=== PATIENT | male | born 1945 | race Caucasian/White ===

== ENCOUNTER 2017-03-11 15:20 | Emergency (ER) | payer OTHER, MEDICAID ==
[~2017-03-11] VITALS: Ht 185.4 cm; Wt 77.1 kg
[~2017-03-11 15:20] MED LIST: MOME13HF IH; MONT10TA22 PO; PROAIR; SYMBICORT; TIOT18CA3 IH
[2017-03-11 15:32] VITALS: BP_SYST 119
[2017-03-11 16:50] VITALS: BP_SYST 123
== END 2017-03-11 16:50 | disposition home or self-care (01) ==
LOC: SED 15:20
DX: S92.352A Displaced fracture of fifth metatarsal bone, left foot, initial encounter for closed fracture (principal); J44.9 Chronic obstructive pulmonary disease, unspecified; W01.0XXA Fall on same level from slipping, tripping and stumbling without subsequent striking against object, initial encounter; Y93.89 Activity, other specified; Y92.89 Other specified places as the place of occurrence of the external cause; Y99.8 Other external cause status
CPT/HCPCS: 99284

== ENCOUNTER 2018-07-03 15:16 | Inpatient (IN) | payer OTHER, MEDICAID ==
[~2018-07-03] VITALS: Ht 182.9 cm; Wt 72.6 kg
[2018-07-03 15:16] VITALS: BP_SYST 125
[2018-07-03] MEDS ORDERED: ASPIRIN 81 MG TAB.CHEW PO ONE (15:30)
[2018-07-03] MEDS ORDERED: BUPR300T55 PO (15:49)
[2018-07-03] MEDS ORDERED: FLUT16SP16 NS (15:49)
[2018-07-03] MEDS ORDERED: DICY10CA13 PO (15:49)
[2018-07-03] MEDS ORDERED: SPIRIVA INH (15:49)
[2018-07-03] MEDS ORDERED: FLUT1BLS3 INH (15:49)
[2018-07-03] MEDS ORDERED: ALBMDI INH (15:49)
[2018-07-03] MEDS ORDERED: ALPR0.5T PO (15:49)
[2018-07-03 16:12] LABS: ANION GAP 9 (5-15); CHLORIDE 104 mmol/L (98-107); CREATININE 0.75 mg/dL (0.55-1.30); GLUCOSE 118 mg/dL (70-99); POTASSIUM 3.9 mmol/L (3.5-5.1); SODIUM SERUM 141 mmol/L (136-145); UREA NITROGEN, BLOOD 15 mg/dL (8-21)
[2018-07-03 16:19] LABS: ALANINE AMINOTRANSFERASE 18 U/L (12-78); ALBUMIN 3.9 g/dL (3.4-4.8); ASPARTATE AMINOTRANSFERASE 16 U/L (10-37); INR 1.1 (0.80-1.20); PROTHROMBIN TIME 10.9 SECS (9.5-12.5); TOTAL BILIRUBIN 0.3 mg/dL (0.0-1.0)
[2018-07-03 16:20] LABS: BASOPHILS % (AUTO) 0.8 % (0.0-2.0); EOSINOPHILS # (AUTO) 0.2 K/uL (0.0-0.4); EOSINOPHILS % (AUTO) 3.1 % (0.0-4.0); HEMATOCRIT 43.3 % (36-54); HEMOGLOBIN 14.6 g/dL (14.0-18.0); LYMPHOCYTES # (AUTO) 1.1 K/uL (1.0-5.5); LYMPHOCYTES % (AUTO) 18.9 % (20.5-51.5); MEAN CORPUSCULAR HEMOGLOBIN 31 pg (27-31); MEAN CORPUSCULAR HGB CONC 34 % (32-36); MEAN CORPUSCULAR VOLUME 91 fL (79.0-98.0); MONOCYTES # (AUTO) 0.5 K/uL (0.0-1.0); MONOCYTES % (AUTO) 7.9 % (1.7-9.3); NEUTROPHILS % (AUTO) 69.3 % (40.0-70.0); PLATELET COUNT (AUTO) 236 K/uL (130-430); RED BLOOD CELL COUNT(AUTO) 4.76 MIL/uL (4.2-6.2); RED CELL DISTRIBUTION WIDTH 12.9 % (9.0-15.0); WHITE BLOOD COUNT (AUTO) 5.8 K/uL (4.8-10.8)
[2018-07-03] MEDS ORDERED: IPRATROPIUM/ALBUTEROL SULFATE 3 ML AMPUL.NEB INH PRN (17:15)
[2018-07-03] MEDS ORDERED: MORPHINE 4 MG/ML INJ. SYRINGE IVP PRN (17:15)
[2018-07-03] MEDS ORDERED: traMADol HCL HCL 50 MG TABLET (ULTRAM) PO PRN (17:15)
[2018-07-03] MEDS ORDERED: ONDANSETRON HCL 4 MG/2 ML VIAL IVP PRN (17:15)
[2018-07-03] MEDS ORDERED: ACETAMINOPHEN 325 MG TABLET PO PRN (17:15)
[2018-07-03 17:23] VITALS: BP_SYST 137
[2018-07-03] MEDS: IPRATROPIUM/ALBUTEROL SULFATE 3 ML AMPUL.NEB INH SCH ×2 (17:30→23:00)
[2018-07-03 17:37] VITALS: BP_SYST 116
[2018-07-03] MEDS: ALPRAZolam 0.25 MG TABLET PO SCH (18:00)
[2018-07-03 20:00] VITALS: BP_SYST 118
[2018-07-03] MEDS ORDERED: ZOLPIDEM TARTRATE 5 MG TABLET PO PRN (21:00)
[2018-07-03] MEDS ORDERED: CARI350T27 PO (22:22)
[2018-07-04 00:49] VITALS: BP_SYST 113
[2018-07-04 06:22] LABS: BASOPHILS % (AUTO) 0.9 % (0.0-2.0); EOSINOPHILS # (AUTO) 0.2 K/uL (0.0-0.4); EOSINOPHILS % (AUTO) 3.6 % (0.0-4.0); HEMATOCRIT 42.2 % (36-54); HEMOGLOBIN 14.1 g/dL (14.0-18.0); LYMPHOCYTES # (AUTO) 1.1 K/uL (1.0-5.5); LYMPHOCYTES % (AUTO) 20.2 % (20.5-51.5); MEAN CORPUSCULAR HEMOGLOBIN 31 pg (27-31); MEAN CORPUSCULAR HGB CONC 34 % (32-36); MEAN CORPUSCULAR VOLUME 92 fL (79.0-98.0); MONOCYTES # (AUTO) 0.5 K/uL (0.0-1.0); MONOCYTES % (AUTO) 9.7 % (1.7-9.3); NEUTROPHILS # (AUTO) 3.5 K/uL (1.8-7.7); NEUTROPHILS % (AUTO) 65.6 % (40.0-70.0); PLATELET COUNT (AUTO) 216 K/uL (130-430); RED CELL DISTRIBUTION WIDTH 12.3 % (9.0-15.0); WHITE BLOOD COUNT (AUTO) 5.3 K/uL (4.8-10.8)
[2018-07-04 06:56] LABS: ANION GAP 7 (5-15); CALCIUM 8.9 mg/dL (8.4-11.0); CHLORIDE 105 mmol/L (98-107); GLUCOSE 106 mg/dL (70-99); SODIUM SERUM 141 mmol/L (136-145); UREA NITROGEN, BLOOD 13 mg/dL (8-21)
[2018-07-04 07:19] LABS: ALANINE AMINOTRANSFERASE 18 U/L (12-78); ALBUMIN 3.5 g/dL (3.4-4.8); ASPARTATE AMINOTRANSFERASE 16 U/L (10-37); FREE T4 (FREE THYROXINE) 0.8 ng/dl (0.8-1.5); THYROID STIMULATING HORMONE 4.49 uIu/mL (0.36-3.74); TOTAL BILIRUBIN 0.5 mg/dL (0.0-1.0)
[2018-07-04] MEDS: IPRATROPIUM/ALBUTEROL SULFATE 3 ML AMPUL.NEB INH SCH ×2 (07:37→15:02)
[2018-07-04 07:45] LABS: CHOLESTEROL 169 mg/dL (<200); HDL CHOLESTEROL 53 mg/dL (>45); LDL CHOLESTEROL 106 mg/dL (<100); TRIGLYCERIDES 40 mg/dL (30-150)
[2018-07-04 08:00] VITALS: BP_SYST 117
[2018-07-04] MEDS: ALPRAZolam 0.25 MG TABLET PO SCH ×2 (08:17→15:07)
[2018-07-04] MEDS ORDERED: buPROPion HCL 150 MG XL TAB PO SCH (09:00)
[2018-07-04] MEDS ORDERED: FLUTICASONE/VILANTEROL 1 EACH BLST.W.DEV INH SCH (09:00)
[2018-07-04] MEDS ORDERED: FLUTICASONE PROPIONATE 50 mCg/SPRAY 16 GM NS SCH (09:00)
[2018-07-04] MEDS ORDERED: ASPIRIN 81 MG TABLET(ECOTRIN) PO SCH (09:00)
[2018-07-04] MEDS ORDERED: TIOTROPIUM BROMIDE 18 mcg/INHALATION (CAPSULE) INH SCH (09:00)
[2018-07-04 12:00] VITALS: BP_SYST 114
[2018-07-04 16:00] VITALS: BP_SYST 120
[2018-07-04 17:17] VITALS: BP_SYST 134
== END 2018-07-04 18:10 | disposition left against medical advice (07) | DRG 192 ==
LOC: SED 15:16 → STU 16:34
PROVIDERS: ADMIT Internal Medicine; ATTEND Internal Medicine
DX: J44.1 Chronic obstructive pulmonary disease with (acute) exacerbation (principal); F32.9 Major depressive disorder, single episode, unspecified; I73.9 Peripheral vascular disease, unspecified; I71.4 Abdominal aortic aneurysm, without rupture; F41.9 Anxiety disorder, unspecified; F17.200 Nicotine dependence, unspecified, uncomplicated; R07.89 Other chest pain; Z53.21 Procedure and treatment not carried out due to patient leaving prior to being seen by health care provider; Z79.899 Other long term (current) drug therapy; Z82.49 Family history of ischemic heart disease and other diseases of the circulatory system
CPT/HCPCS: 36415; 71045; 80053; 80061; 82550-TC; 83735-TC; 84439; 84443-TC; 84484; 85025; 85610-TC; 85730-TC; 93005; 93306; 94640; 99285; J7620

== ENCOUNTER 2018-08-31 13:17 | Emergency (ER) | payer OTHER, MEDICAID ==
[~2018-08-31] VITALS: Ht 182.9 cm; Wt 74.8 kg
[2018-08-31 13:17] VITALS: BP_SYST 151
[~2018-08-31 13:17] MED LIST changes: +ALBMDI INH; +ALPR0.5T PO; +BUPR300T55 PO; +CARI350T27 PO; +DICY10CA13 PO; +FLUT16SP16 NS; +FLUT1BLS3 INH; -MOME13HF IH; -MONT10TA22 PO; -PROAIR; +SPIRIVA INH; -SYMBICORT; -TIOT18CA3 IH
[2018-08-31 14:21] LABS: BASOPHILS # (AUTO) 0.1 K/uL (0.0-0.2); EOSINOPHILS # (AUTO) 0.3 K/uL (0.0-0.4); EOSINOPHILS % (AUTO) 6.7 % (0.0-4.0); HEMATOCRIT 45.5 % (36-54); HEMOGLOBIN 14.6 g/dL (14.0-18.0); LYMPHOCYTES # (AUTO) 0.9 K/uL (1.0-5.5); LYMPHOCYTES % (AUTO) 17.8 % (20.5-51.5); MEAN CORPUSCULAR HEMOGLOBIN 29 pg (27-31); MEAN CORPUSCULAR HGB CONC 32 % (32-36); MEAN CORPUSCULAR VOLUME 91 fL (79.0-98.0); MONOCYTES # (AUTO) 0.5 K/uL (0.0-1.0); MONOCYTES % (AUTO) 8.7 % (1.7-9.3); NEUTROPHILS # (AUTO) 3.4 K/uL (1.8-7.7); NEUTROPHILS % (AUTO) 65.8 % (40.0-70.0); PLATELET COUNT (AUTO) 213 K/uL (130-430); RED BLOOD CELL COUNT(AUTO) 4.99 MIL/uL (4.2-6.2); WHITE BLOOD COUNT (AUTO) 5.2 K/uL (4.8-10.8)
[2018-08-31 14:33] LABS: ANION GAP 6 (5-15); CALCIUM 9.5 mg/dL (8.4-11.0); CHLORIDE 107 mmol/L (98-107); CREATININE 0.71 mg/dL (0.55-1.30); GLUCOSE 99 mg/dL (70-99); POTASSIUM 3.8 mmol/L (3.5-5.1); SODIUM SERUM 138 mmol/L (136-145); UREA NITROGEN, BLOOD 11 mg/dL (8-21)
[2018-08-31 14:38] LABS: ALANINE AMINOTRANSFERASE 19 U/L (12-78); ALBUMIN 3.7 g/dL (3.4-4.8); ASPARTATE AMINOTRANSFERASE 14 U/L (10-37); TOTAL BILIRUBIN 0.6 mg/dL (0.0-1.0)
[2018-08-31 14:46] LABS: PROTHROMBIN TIME 10.1 SECS (9.5-12.5)
[2018-08-31] MEDS ORDERED: IOHEXOL 350 mgI/mL, 150 ML INFUS..BTL IV ONE (15:25)
[2018-08-31 17:35] VITALS: BP_SYST 131
== END 2018-08-31 17:35 | disposition home or self-care (01) ==
LOC: SED 13:17
DX: J44.1 Chronic obstructive pulmonary disease with (acute) exacerbation (principal); I71.4 Abdominal aortic aneurysm, without rupture; Z79.899 Other long term (current) drug therapy
CPT/HCPCS: 36415; 71045; 71275; 74177; 80053; 82550; 83880; 84484; 85025; 85379; 85610; 85730; 94660; 94760; 99285; Q9967; 93005

== ENCOUNTER 2020-07-26 04:38 | Emergency (ER) | payer OTHER, MEDICAID ==
[~2020-07-26] VITALS: Ht 182.9 cm; Wt 78.9 kg
--- NOTE | 2020-07-26 04:40 | NUR ---
Patient to ER bed 7 to gown for evaluation. Side rails up. Report given to ELENA LOCKHART.
[2020-07-26 04:43] VITALS: BP_SYST 138
--- NOTE | 2020-07-26 05:00 | NUR ---
Dr. Ching bedside for pt eval
--- NOTE | 2020-07-26 05:05 | NUR ---
PT BIB FAMILY TO ED C/O URINARY RETENTION SINCE 9PM.STS HE HAD UROLIFT PROCEDURE YESTERDAY [facility]PRESSURE PAIN TO LOWER ABD. VSS NO S/S OF ACUTE DISTRESS RESTING ON GURNEY RAILS UP
[2020-07-26] MEDS ORDERED: LIDOCAINE VISCOUS 2%, 15 ML UDC MM ONE (05:15)
--- NOTE | 2020-07-26 05:15 | NUR ---
Bladder scanning procedure well tolerated, with 133 ml of urine retention documented. Dr. Ching ordered insertion of [place] cath, well tolerated as well
--- NOTE | 2020-07-26 05:30 | NUR ---
Pt verbalized feeling much better, and VSS no s/s of acute distress Resting on chair
--- NOTE | 2020-07-26 05:35 | NUR ---
Urine Leg bag implemented successfully
[2020-07-26 05:40] VITALS: BP_SYST 138
--- NOTE | 2020-07-26 05:40 | NUR ---
Patient given written and verbal discharge instructions and verbalizes understanding. ER MD discussed with patient the results and treatment provided. Patient in stable condition. ID arm band removed. Patient educated on pain management and to follow up with PMD. Pain Scale 0/10 Opportunity for questions provided and answered.
== END 2020-07-26 05:40 | disposition home or self-care (01) ==
LOC: SED 04:38
DX: R33.9 Retention of urine, unspecified (principal); J44.9 Chronic obstructive pulmonary disease, unspecified; Z79.899 Other long term (current) drug therapy; Z87.891 Personal history of nicotine dependence
CPT/HCPCS: 99284; J2001